=== PATIENT | female | born 1965 | race Caucasian/White ===

== ENCOUNTER → 2016-11-06 | Outpatient (CLI) | payer BC ==
[~2016-11-06] MED LIST: AMIT10TA6 PO; DULO60CA44 PO; GABA600T PO; OXYC-164 PO; PANT40TA PO; RANI300T2 PO; TIZA4CAP PO
--- NOTE | 2016-11-06 16:33 | MAMMOGRAPHY REPORT ---
BILATERAL DIGITAL SCREENING MAMMOGRAM TOMOSYNTHESIS WITH CAD: 11/06/2016 CLINICAL HISTORY: Routine screening. Patient has no complaints. TECHNIQUE: Breast tomosynthesis in addition to standard 2D mammography was performed. Current study was also evaluated with a Computer Aided Detection (CAD) system. COMPARISON: Comparison is made to exam dated: 07/31/2014 mammogram - [facility]. BREAST COMPOSITION: There are scattered areas of fibroglandular density in both breasts. FINDINGS: No suspicious masses, calcifications, or areas of architectural distortion are noted in e ither breast. There has been no significant interval change compared to prior exams. IMPRESSION: ACR BI-RADS CATEGORY 1: NEGATIVE There is no mammographic evidence of malignancy. A 1 year screening mammogram is recommended. The p atient will receive written notification of the results. Approximately 10% of breast cancers are not detected with mammography. A negative mammographic repor t should not delay biopsy if a clinically suggestive mass is present. Laurie Duarte M.D. ah/:11/06/2016 13:54:13 Engineering And Scientific Programmer: Danae GILLIAM(Melyssa)(M), [facility] letter sent: Normal 1/2 BI-RADS Code: ACR BI-RADS Category 1: Negative
== END | disposition home or self-care (01) ==
LOC: C.MAMM 13:27
DX: Z12.31 Encounter for screening mammogram for malignant neoplasm of breast (principal)

== ENCOUNTER 2016-11-13 20:51 | Emergency (ER) | payer BC, OTHER ==
[~2016-11-13] VITALS: Ht 165.1 cm; Wt 77.7 kg
[2016-11-13 20:55] VITALS: TEMP 36.7; Ht 165.1 cm; Wt 77.7 kg
--- NOTE | 2016-11-13 21:14 | DIAGNOSTIC IMAGING REPORT ---
LEFT HAND MIN 3 VIEWS ROUTINE CLINICAL HISTORY: Left hand pain following injury. COMPARISON: None FINDINGS: Alignment of left hand is anatomic. There is no acute fracture. IMPRESSION: No acute fracture or dislocation of the left hand. Electronically signed by: Garrett Adame M.D. 11/13/2016 9:13 PM Dictated Date/Time: 11/13/2016 9:12 PM
[2016-11-13 21:56] VITALS: BP 138/92; PULSE 82; O2SAT 94
--- NOTE | 2016-11-13 22:22 | EMERGENCY ROOM VISIT NOTE ---
ED Visit Note First contact with patient: 21:34 CHIEF COMPLAINT: Hand injury HISTORY OF PRESENT ILLNESS: This 51-year-old female patient presents to the emergency department after they injured the left 10 days ago. The patient states that she closed her hand in a car door causing her injury. The patient rates the pain as dull and 4/10. The patient denies any numbness or tingling. The patient does not have injuries to the wrist. The patient has not had a previous fracture to this hand. She has had swelling intermittent off and on for the past 2 days. No fever or chills. No redness to the area. She is able to use her hand and has full sensation and range of motion. REVIEW OF SYSTEMS: A 6 system review of systems was completed with positives and pertinent negatives in the HPI. ALLERGIES: Aspirin MEDICATIONS: No chronic medications PMH: Otherwise healthy SOCIAL HISTORY: Lives locally PHYSICAL EXAM: Vital Signs: Reviewed Nurse's notes, vital signs stable. GENERAL : White female, in no acute distress, but appears to be in pain, well-developed , well-nourished. MUSCULOSKELETAL: There is no deformity of the left hand. There is tenderness over 2nd and 3rd MCP joints. There is no thenar or hypothenar eminence atrophy. Normal thumb opposition to all fingers. 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 There is no laceration. Capillary refill less than 2 seconds. No tenderness of the fingers or wrist. Full range of motion of the wrist. No snuff box tenderness. Radial pulse 2+. NEURO: Alert and oriented to person, place, and time. Normal sensation to light and sharp touch. LEFT HAND MIN 3 VIEWS ROUTINE CLINICAL HISTORY: Left hand pain following injury. COMPARISON: None FINDINGS: Alignment of left hand is anatomic. There is no acute fracture. IMPRESSION: No acute fracture or dislocation of the left hand. EMERGENCY DEPARTMENT COURSE: Physical exam and history were performed. Nursing notes and EMR were reviewed. The patient appears to have suffered a contusion injury to her hand 10 days ago. On exam she does have some tenderness over the second and third MCP joints. There is no significant edema or evidence of infection. No laceration or deformity. X-ray was performed and does not show acute fracture or dislocation. The patient will be treated conservatively with ibuprofen, Tylenol, and ice. As her symptoms have been ongoing for 10 days she should follow with orthopedics and was given information to see Dr. Luke. She was otherwise invited back to the ER with any new, worsening, or concerning symptoms. Current/Historical Medications Scheduled Amitriptyline Hcl (Elavil), 10 MG PO HS Duloxetine Hcl (Cymbalta), 60 MG PO QAM Gabapentin (Neurontin), 600 MG PO BID Pantoprazole (Protonix), 40 MG PO QAM Ranitidine (Zantac), 300 MG PO HS Scheduled PRN Oxycodone Hcl (Oxycodone Hcl), 10 MG PO 6XDAILY PRN for Pain Tizanidine (Zanaflex), 4 MG PO UD PRN for Pain Allergies Coded Allergies: Aspirin (Unverified Allergy, Severe, SHORTNESS OF BREATH, 06/30/16) Vital Signs Date Time Temp Pulse Resp B/P Pulse Ox O2 Delivery O2 Flow Rate FiO2 11/13/16 21:56 82 138/92 94 Room Air 11/13/16 20:55 36.7 85 18 148/88 97 Room Air Departure Information Impression Primary Impression: Injury of left hand Dispostion Home / Self-Care Condition GOOD Referrals Charles Luke, DO Forms HOME CARE DOCUMENTATION FORM, IMPORTANT VISIT INFORMATION Patient Instructions My [facility] Additional Instructions You were seen and evaluated today on an emergency basis only. This is not a substitute for, or an effort to provide, complete comprehensive medical care. It is not possible to recognize and treat all injuries or illnesses in a single emergency department visit. For this reason it is recommended that you followup with Orthopedics, Dr. Luke's office, for ongoing care and evaluation. For baseline pain relief you may alternate ibuprofen and acetaminophen every 4 hours for pain control. Take 600 mg ibuprofen (Advil) and then 4 hours later take 1000 mg acetaminophen (Tylenol). Do not take more than 3000 mg acetaminophen in a single day. You are welcome to return to the emergency department anytime with new, worsening, or concerning symptoms.
== END 2016-11-13 22:14 | disposition home or self-care (01) ==
LOC: C.EDB 20:53 → C.EDD 22:14
DX: S69.92XA Unspecified injury of left wrist, hand and finger(s), initial encounter (principal); V43.42XA Person boarding or alighting a car injured in collision with other type car, initial encounter; Z79.899 Other long term (current) drug therapy; Z88.8 Allergy status to other drugs, medicaments and biological substances

== ENCOUNTER 2017-02-06 16:15 | Emergency (ER) | payer BC, OTHER ==
[~2017-02-06] VITALS: Ht 165.1 cm; Wt 76.4 kg
[2017-02-06 16:17] VITALS: BP 145/85; PULSE 85; TEMP 36.8; O2SAT 98; Ht 165.1 cm; Wt 76.4 kg
--- NOTE | 2017-02-06 16:55 | DIAGNOSTIC IMAGING REPORT ---
RIGHT FOREARM 2 VIEWS ROUTINE CLINICAL HISTORY: Right forearm and wrist pain following fall. COMPARISON: None FINDINGS: No definite fracture of the right radius or ulna is identified. There is subtle cortical irregularity of the distal lateral metaphysis of the right radius. Alignment of the right elbow is anatomic and there is no right elbow joint effusion. IMPRESSION: No definite fracture. Equivocal buckle type fracture of the distal right radius, better depicted on the right wrist radiographs. Electronically signed by: Garrett Adame M.D. 02/06/2017 4:53 PM Dictated Date/Time: 02/06/2017 4:50 PM
--- NOTE | 2017-02-06 16:57 | DIAGNOSTIC IMAGING REPORT ---
RIGHT WRIST W/NAVICULAR MIN 3 VIEWS CLINICAL HISTORY: Right wrist pain following fall. COMPARISON: None FINDINGS: Alignment of the right carpal bones is anatomic. No acute fracture is identified within the carpal bones. There is subtle cortical irregularity of the lateral metaphysis of the right radius which is equivocal for a buckle type fracture. IMPRESSION: Equivocal buckle type fracture of the lateral metaphysis of the right radius. Electronically signed by: Garrett Adame M.D. 02/06/2017 4:55 PM Dictated Date/Time: 02/06/2017 4:54 PM
--- NOTE | 2017-02-07 22:36 | EMERGENCY ROOM VISIT NOTE ---
ED Visit Note First contact with patient: 16:23 Chief Complaint: Right wrist pain. History of Present Illness: Ms. Garcia is a 51-year-old white female who ambulates into the ED accompanied by her complaining of right wrist pain. Patient reports approximately 2 hours ago she slipped and fell on her outstretched right wrist that was behind her. Since that time she has been having pain over the distal radius and in the anatomical snuffbox. She describes her pain as a sharp and throbbing sensation. Her pain is radiating to the mid forearm. She rates her discomfort 10/10. Her pain worsens with palpation in all movements of the waist. She has not identified any alleviating factors related to the pain. She reports she took 10 mg of oxycodone for pain prior to arrival at the hospital without relief. She denies any associated symptoms including shoulder pain, elbow pain, forearm pain, hand pain, finger pain, right upper extremity weakness/numbness/tingling. Additionally she denies any previous significant injuries or surgeries to the wrist. Review of Systems: As noted above in history of present illness. Past Medical History: Fibromyalgia. Current Medications: Neurontin, Zantac, Protonix, Cymbalta, Elavil, Zanaflex and oxycodone. Allergies to Medications: Aspirin. Social History: Patient is not employed; she lives there and feels safe in her home environment; she denies tobacco and alcohol use. Physical Examination: Vital Signs: Date Time Temp Pulse Resp B/P (MAP) Pulse Ox O2 Delivery O2 Flow Rate FiO2 02/06/17 16:17 36.8 85 20 145/85 98 Room Air GENERAL: 51-year-old female in mild to moderate distress due to pain, nontoxic- appearing, afebrile and hemodynamically stable. NEUROLOGICAL: Awake, alert and oriented to person, place and time. Answering questions appropriately and following commands. Normal gait. SKIN: Warm, dry and pink. No soft tissue eruptions or trauma noted. RIGHT UPPER EXTREMITY: No gross bony deformity. No tenderness in the shoulder or, elbow. Mild tenderness starting at the mid forearm and extending distally. No bony deformity or crepitus. Mild tenderness over the distal radius and the anatomical snuffbox. She does have some swelling just inferior to the anatomical snuffbox. No tenderness throughout the hands or fingers. She has full range of motion in flexion and extension of the elbow and almost near range of motion in pronation and supination of the forearm. She refused to do range of motion at the level of the wrist due to pain. With the risk stabilize that she has full range of motion of flexion and extension of all MCP, PIP and DIP joints. Throughout the hand the skin was warm and pink and capillary refill is brisk. She was able to distinguish light sensations through all dermatomes. ED Course: Patient is assessed as noted above. Patient's medications were reviewed. Patient was offered pain medications and refused; she was given ice. Right Wrist X-Ray with Navicular View: Was read by myself and the radiologist shows an equivocal buckle fracture of the lateral metaphysis of the right radius. Right Forearm X-Rays: Were read by myself and the radiologist and shows no definitive fracture but there is an equivocal buckle type fracture of the distal right radius. Patient was placed in an Ortho-Glass fall are splint. Patient was educated about today's findings and instructed on her treatment plan ; she verbalizes understanding and agreement with this plan. Clinical Impression: Acute right wrist pain. Equivocal distal radius buckle fracture. Disposition: Patient discharged home in stable condition accompanied by her ; prior to departure she was reassessed and subjectively reported that she was pain-free. Plan: For measures were discussed with the patient including continuing her home pain medications at home, ice, splint use, rest. Patient was encouraged to follow-up with orthopedics for definitive care and treatment. Patient was encouraged return ED for worsening/uncontrolled pain, uncontrolled swelling, hand weakness/numbness/tingling or any new/concerning symptoms.
== END 2017-02-06 17:32 | disposition home or self-care (01) ==
LOC: C.EDB 16:16 → C.EDD 17:32
DX: S52.591A Other fractures of lower end of right radius, initial encounter for closed fracture (principal); W01.198A Fall on same level from slipping, tripping and stumbling with subsequent striking against other object, initial encounter; M79.7 Fibromyalgia; Z79.899 Other long term (current) drug therapy